=== PATIENT | male | born 1995 | race Caucasian/White ===

== ENCOUNTER 2017-01-29 01:54 | Emergency (ER) | payer SELFPAY ==
[~2017-01-29] VITALS: Ht 185.4 cm; Wt 61.8 kg
[~2017-01-29 01:54] MED LIST: AUGMENTIN875 MG PO; FOCALIN XR10 MG PO; LORTAB 5-325 M1 EACH PO; NOHOMEMEDS; PRILOSEC20 MG PO
[2017-01-29] MEDS ORDERED: PROVENTIL HFA6.7 GM IH (03:08)
[2017-01-29 04:25] VITALS: BP 120/87
== END 2017-01-29 04:24 ==
LOC: EME → EDBD 01:54 → EME 01:54
DX: J45.901 Unspecified asthma with (acute) exacerbation (principal); S20.212A Contusion of left front wall of thorax, initial encounter; S96.912A Strain of unspecified muscle and tendon at ankle and foot level, left foot, initial encounter; V49.9XXA Car occupant (driver) (passenger) injured in unspecified traffic accident, initial encounter; F12.90 Cannabis use, unspecified, uncomplicated; F17.200 Nicotine dependence, unspecified, uncomplicated
CPT/HCPCS: 71010; 73610; 94640; 99281; 99285

== ENCOUNTER 2017-09-20 17:18 | Observation (INO) | payer SELFPAY ==
[~2017-09-20] VITALS: Ht 185.4 cm; Wt 64.5 kg
[~2017-09-20 17:18] MED LIST changes: +PROVENTIL HFA6.7 GM IH
[2017-09-20 18:00] LABS: APPEARANCE CLOUDY ((CLEAR)); BILIRUBIN NEGATIVE; BLOOD LARGE; COLOR AMBER ((YELLOW)); GLUCOSE (STRIP) NEGATIVE; KETONES 20; LEUKOCYTES NEGATIVE; NITRITE NEGATIVE; PROTEIN (STRIP) 100; SPECIFIC GRAVITY 1.024 (1.000-1.030)
[2017-09-20 18:27] LABS: HEMATOCRIT 47.2 % (38.0-50.0); HEMOGLOBIN 17.7 G/DL (12.5-16.6); MCH 32.2 PG (29.0-34.0); MCHC 37.5 G/DL (30.0-36.0); PLATELET COUNT 234 K/uL (156-360); RBC DIS.WIDTH-CV 12.6 % (11.8-14.6); RBC DIS.WIDTH-SD 39.4 % (39-53); RED BLOOD COUNT 5.49 M/uL (4.00-5.50); WHITE BLOOD COUNT 15.3 K/uL (4.1-10.2)
[2017-09-20 18:38] LABS: CHLORIDE 104 mEq/L (99-109); POTASSIUM 3.2 mEq/L (3.7-5.4); SODIUM 137 mEq/L (136-147)
[2017-09-20 18:40] LABS: GLUCOSE 108 mg/dL (70-99)
[2017-09-20 18:41] LABS: EPITHELIAL CELLS NONE SEEN /HPF; MUCUS NONE SEEN /LPF; RED BLOOD CELLS TNTC /HPF (0-5); WHITE BLOOD CELLS NONE SEEN /HPF (0-5)
[2017-09-20 18:42] LABS: BACTERIA NONE SEEN /HPF
[2017-09-20 18:43] LABS: CREATININE 0.9 mg/dL (0.6-1.3); GFR ESTIMATE (CALCULATED) > 59 mL/min/ (58.99-99999)
[2017-09-20 18:44] LABS: UREA NITROGEN (BUN) 10 mg/dL (9-23)
[2017-09-20 19:15] LABS: ALBUMIN 4.9 g/dL (3.2-4.8)
[2017-09-20 19:18] LABS: TOTAL PROTEIN 8.1 g/dL (6.4-8.3); TROP-I INTERPRETATION NEGATIVE; TROPONIN-I < 0.01 ng/mL (0.0-0.30)
[2017-09-20 19:20] LABS: TOTAL BILIRUBIN 0.7 mg/dL (0.0-1.0)
[2017-09-20 19:21] LABS: ALKALINE PHOSPHATASE 108 IU/L (3-129)
[2017-09-20 19:23] LABS: AST (GOT) 14 IU/L (2-34); DIRECT BILIRUBIN 0.3 mg/dL (0.0-0.3)
[2017-09-20 19:24] LABS: ALT (GPT) 8 IU/L (3-49); LIPASE 16 U/L (1.0-51.0)
[2017-09-20 20:31] LABS: CREATINE KINASE 60 IU/L (1-294)
[2017-09-20 22:31] LABS: MONOSPOT (MONONUCLEOSIS SEROL) POSITIVE
[2017-09-20 22:35] LABS: SOURCE URINE
[2017-09-20 23:19] VITALS: BP 115/65
[2017-09-24 14:26] LABS: CHLAMYDIA TRACHOMATIS NEGATIVE; NEISSERIA GONORRHOEAE NEGATIVE
== END 2017-09-21 01:30 | disposition left against medical advice (07) ==
LOC: EME 17:18 → 4SOUTH 22:07 → EDOF 22:07 → ENRESERV 22:08 → 4SOUTH 23:13
PROVIDERS: Physician Assistant
DX: R31.9 Hematuria, unspecified (principal); E87.6 Hypokalemia; B27.90 Infectious mononucleosis, unspecified without complication; K21.9 Gastro-esophageal reflux disease without esophagitis; Z87.891 Personal history of nicotine dependence; Z82.5 Family history of asthma and other chronic lower respiratory diseases; Z88.6 Allergy status to analgesic agent
CPT/HCPCS: 71046; 74176; 80048; 80076; 81003; 82550; 83605; 83690; 84484; 85025; 85027; 86308; 87040; 87086; 87491; 87591; 87651 90; 93005; G0378; J0696; J2270; J2405; J3010; J7030

== ENCOUNTER 2017-09-26 11:20 | Inpatient (IN) | payer OTHER ==
[~2017-09-26] VITALS: Ht 185.4 cm; Wt 63.5 kg
[2017-09-26] VITALS (15 sets, daily range): BP systolic 109–131; BP diastolic 65–95
[2017-09-26 12:19] LABS: BASOPHIL (%) 0.1 % (0-1); EOSINOPHIL (%) 0.2 % (0-5); HEMATOCRIT 41.2 % (38.0-50.0); IMMATURE GRANULOCYTE (%) 0.5 % (0.0-0.7); LYMPHOCYTE (%) 3.8 % (15-42); LYMPHOCYTE COUNT 0.7 K/uL (1.0-2.8); MCH 31.2 PG (29.0-34.0); MCHC 35.9 G/DL (30.0-36.0); MCV 86.7 FL (86-99); MONOCYTE (%) 10.6 % (3-12); NEUTROPHIL (%) 84.8 % (45-76); PLATELET COUNT 269 K/uL (156-360); RBC DIS.WIDTH-CV 12.5 % (11.8-14.6); RBC DIS.WIDTH-SD 39.8 % (39-53); RED BLOOD COUNT 4.75 M/uL (4.00-5.50); WHITE BLOOD COUNT 18.8 K/uL (4.1-10.2)
[2017-09-26 12:25] LABS: CHLORIDE 100 mEq/L (99-109); SODIUM 140 mEq/L (136-147)
[2017-09-26 12:27] LABS: GLUCOSE 139 mg/dL (70-99); TOTAL PROTEIN 7.1 g/dL (6.4-8.3)
[2017-09-26 12:31] LABS: ALKALINE PHOSPHATASE 101 IU/L (3-129)
[2017-09-26 12:32] LABS: CREATININE 3.2 mg/dL (0.6-1.3); GFR ESTIMATE (CALCULATED) 27 mL/min/ (58.99-99999); TOTAL BILIRUBIN 0.5 mg/dL (0.0-1.0); UREA NITROGEN (BUN) 27 mg/dL (9-23)
[2017-09-26 12:33] LABS: AST (GOT) 18 IU/L (2-34)
[2017-09-26 12:34] LABS: ALT (GPT) 8 IU/L (3-49); LIPASE 18 U/L (1.0-51.0)
[2017-09-26 12:35] LABS: PTT 130.6 SEC (25-37)
[2017-09-26 12:47] LABS: INTER. NORMALIZED RATIO 21.3
[2017-09-26 14:27] LABS: HEMOGLOBIN 14.8 G/DL (12.5-16.6)
[2017-09-26 16:00] LABS: APPEARANCE TURBID ((CLEAR)); BILIRUBIN NEGATIVE; BLOOD LARGE; GLUCOSE (STRIP) 50; KETONES NEGATIVE; LEUKOCYTES NEGATIVE; NITRITE NEGATIVE; PROTEIN (STRIP) 100; SPECIFIC GRAVITY 1.025 (1.000-1.030)
[2017-09-26 16:28] LABS: COLOR RED ((YELLOW))
[2017-09-26 16:57] LABS: RED BLOOD CELLS TNTC /HPF (0-5)
[2017-09-26 17:04] LABS: CALCIUM OXALATE CRYSTALS FEW /HPF; EPITHELIAL CELLS RARE /HPF; UCUL ADDED? YES
[2017-09-26 17:25] LABS: FIBRINOGEN 686 mg/dL (150-450)
[2017-09-26 18:22] LABS: D-DIMER LATEX NEGATIVE; SCHISTOCYTES NONE SEEN
[2017-09-26 19:04] LABS: AMPHETAMINE NEGATIVE (500 ng/mL); BARBITURATES NEGATIVE (200 ng/mL); BENZODIAZEPINES NEGATIVE (150 ng/mL); BUPRENORPHINE NEGATIVE (10 ng/mL); COCAINE NEGATIVE (150 ng/mL); METHADONE NEGATIVE (200 ng/mL); METHAMPHETAMINE NEGATIVE (500 ng/mL); OPIATES (MORPHINE) NEGATIVE (100 ng/mL); OXYCODONE PRESUMPTIVE POSITIVE (100 ng/mL); PHENCYCLIDINE NEGATIVE (25 ng/mL); PROPOXYPHENE NEGATIVE (300 ng/mL); THC CANNABINOIDS NEGATIVE (50 ng/mL); TRICYCLIC ANTIDEPRESSANTS NEGATIVE (300 ng/mL)
[2017-09-26 19:24] LABS: ALBUMIN 3.6 G/DL (3.2-4.8); ALKALINE PHOSPHATASE 73 IU/L (3-129); ALT (GPT) 7 IU/L (3-49); AST (GOT) 15 IU/L (2-34); CHLORIDE 103 MEQ/L (99-109); GLUCOSE 114 mg/dL (70-99); PHOSPHORUS 4.8 mg/dL (2.5-4.9); POTASSIUM 3.5 MEQ/L (3.7-5.4); SODIUM 141 MEQ/L (136-147); TOTAL BILIRUBIN 0.6 MG/DL (0.0-1.0); TOTAL PROTEIN 5.8 G/DL (6.4-8.3); UREA NITROGEN (BUN) 28 mg/dL (9-23)
[2017-09-26 19:25] LABS: CREATININE 2.6 MG/DL (0.6-1.3); GFR ESTIMATE (CALCULATED) 34 mL/min/ (58.99-99999)
[2017-09-26 19:58] LABS: MCH 30.2 PG (29.0-34.0); MCHC 34.5 G/DL (30.0-36.0); MCV 87.3 FL (86-99); PLATELET COUNT 220 K/uL (156-360); RBC DIS.WIDTH-CV 12.6 % (11.8-14.6); RBC DIS.WIDTH-SD 40.6 % (39-53); WHITE BLOOD COUNT 12.9 K/uL (4.1-10.2)
[2017-09-26 20:13] LABS: INTER. NORMALIZED RATIO 1.3
[2017-09-26 20:14] LABS: IMMEDIATE MIX PTT 27.2 SEC
[2017-09-26 20:15] LABS: PTT BASELINE 130.6 SEC (25-32)
[2017-09-26 20:26] LABS: CREATINE KINASE 55 IU/L (1-294)
[2017-09-26 21:35] LABS: PLAT.SUFFICIENCY ADEQUATE
[2017-09-26 22:19] LABS: HEMOGLOBIN 11.4 G/DL (12.5-16.6); RED BLOOD COUNT 3.78 M/uL (4.00-5.50)
[2017-09-26 22:39] LABS: 60 MINUTE INCUBATION PTT 51.1
[2017-09-27] VITALS (20 sets, daily range): BP systolic 99–124; BP diastolic 57–85
[2017-09-27 02:49] LABS: INTER. NORMALIZED RATIO 1.5
[2017-09-27 07:05] LABS: HEMATOCRIT 35.2 % (38.0-50.0); HEMOGLOBIN 12.1 G/DL (12.5-16.6); MCH 30.4 PG (29.0-34.0); MCHC 34.4 G/DL (30.0-36.0); MCV 88.4 FL (86-99); PLATELET COUNT 246 K/uL (156-360); RBC DIS.WIDTH-CV 12.8 % (11.8-14.6); RBC DIS.WIDTH-SD 41.8 % (39-53); RED BLOOD COUNT 3.98 M/uL (4.00-5.50); WHITE BLOOD COUNT 11.7 K/uL (4.1-10.2)
[2017-09-27 07:29] LABS: CHLORIDE 106 MEQ/L (99-109); GFR ESTIMATE (CALCULATED) 55 mL/min/ (58.99-99999); GLUCOSE 116 mg/dL (70-99); INTER. NORMALIZED RATIO 1.7; MAGNESIUM 2.2 mg/dl (1.3-2.7); PHOSPHORUS 4.5 mg/dL (2.5-4.9); POTASSIUM 3.7 MEQ/L (3.7-5.4); SODIUM 142 MEQ/L (136-147); UREA NITROGEN (BUN) 22 mg/dL (9-23)
[2017-09-27 07:38] LABS: CREATININE 1.7 MG/DL (0.6-1.3)
[2017-09-27 16:34] LABS: BASOPHIL (%) 0.2 % (0-1); EOSINOPHIL (%) 1.1 % (0-5); EOSINOPHIL COUNT 0.1 K/uL (0-0.3); HEMATOCRIT 31.3 % (38.0-50.0); HEMOGLOBIN 11.2 G/DL (12.5-16.6); IMMATURE GRANULOCYTE (%) 0.5 % (0.0-0.7); LYMPHOCYTE (%) 14.2 % (15-42); LYMPHOCYTE COUNT 1.5 K/uL (1.0-2.8); MCH 31.4 PG (29.0-34.0); MCHC 35.8 G/DL (30.0-36.0); MCV 87.7 FL (86-99); MONOCYTE (%) 9.4 % (3-12); NEUTROPHIL (%) 74.6 % (45-76); NEUTROPHIL COUNT 7.9 K/uL (1.8-6.4); PLATELET COUNT 230 K/uL (156-360); RBC DIS.WIDTH-CV 12.6 % (11.8-14.6); RBC DIS.WIDTH-SD 40.8 % (39-53); RED BLOOD COUNT 3.57 M/uL (4.00-5.50); WHITE BLOOD COUNT 10.6 K/uL (4.1-10.2)
[2017-09-27 16:40] LABS: INTER. NORMALIZED RATIO 2.4
[2017-09-27 17:00] LABS: PTT 38.3 SEC (25-37)
[2017-09-27 17:25] LABS: CHLORIDE 109 MEQ/L (99-109); MAGNESIUM 1.9 mg/dl (1.3-2.7); POTASSIUM 3.4 MEQ/L (3.7-5.4); SODIUM 144 MEQ/L (136-147)
[2017-09-27 17:32] LABS: GFR ESTIMATE (CALCULATED) > 59 mL/min/ (58.99-99999); GLUCOSE 112 mg/dL (70-99); PHOSPHORUS 3.5 mg/dL (2.5-4.9); UREA NITROGEN (BUN) 15 mg/dL (9-23)
[2017-09-27 17:36] LABS: CREATININE 1.1 MG/DL (0.6-1.3)
[2017-09-28] VITALS (12 sets, daily range): BP systolic 106–133; BP diastolic 62–84
[2017-09-28 04:45] LABS: INTER. NORMALIZED RATIO 2.9
[2017-09-28 04:47] LABS: PTT 40.6 SEC (25-37)
[2017-09-28 05:21] LABS: BASOPHIL (%) 0.3 % (0-1); EOSINOPHIL (%) 2.5 % (0-5); EOSINOPHIL COUNT 0.2 K/uL (0-0.3); IMMATURE GRANULOCYTE (%) 0.2 % (0.0-0.7); LYMPHOCYTE (%) 20.4 % (15-42); LYMPHOCYTE COUNT 1.8 K/uL (1.0-2.8); MCH 30.7 PG (29.0-34.0); MCHC 34.4 G/DL (30.0-36.0); MCV 89.4 FL (86-99); MONOCYTE (%) 10.7 % (3-12); MONOCYTE COUNT 0.9 K/uL (0-0.8); NEUTROPHIL (%) 65.9 % (45-76); NEUTROPHIL COUNT 5.8 K/uL (1.8-6.4); PLATELET COUNT 219 K/uL (156-360); RBC DIS.WIDTH-CV 12.5 % (11.8-14.6); RBC DIS.WIDTH-SD 41.4 % (39-53); RED BLOOD COUNT 3.58 M/uL (4.00-5.50); WHITE BLOOD COUNT 8.8 K/uL (4.1-10.2)
[2017-09-28 05:44] LABS: CHLORIDE 107 MEQ/L (99-109); CREATININE 0.8 MG/DL (0.6-1.3); GFR ESTIMATE (CALCULATED) > 59 mL/min/ (58.99-99999); GLUCOSE 97 mg/dL (70-99); MAGNESIUM 1.7 mg/dl (1.3-2.7); PHOSPHORUS 3.5 mg/dL (2.5-4.9); POTASSIUM 3.6 MEQ/L (3.7-5.4); SODIUM 143 MEQ/L (136-147); UREA NITROGEN (BUN) 10 mg/dL (9-23)
[2017-09-28 14:37] LABS: INTER. NORMALIZED RATIO 3.1
[2017-09-28 22:15] LABS: INTER. NORMALIZED RATIO 2.2
[2017-09-28 22:18] LABS: PTT 38.7 SEC (25-37)
[2017-09-29 00:12] VITALS: BP 130/66; BP 136/78
[2017-09-29 04:00] VITALS: BP 128/82
[2017-09-29 05:52] LABS: BASOPHIL (%) 0.6 % (0-1); BASOPHIL COUNT 0.1 K/uL (0-0.1); EOSINOPHIL COUNT 0.3 K/uL (0-0.3); HEMATOCRIT 37.4 % (38.0-50.0); HEMOGLOBIN 12.6 G/DL (12.5-16.6); IMMATURE GRANULOCYTE (%) 0.4 % (0.0-0.7); LYMPHOCYTE (%) 33.7 % (15-42); LYMPHOCYTE COUNT 2.7 K/uL (1.0-2.8); MCH 29.9 PG (29.0-34.0); MCHC 33.7 G/DL (30.0-36.0); MCV 88.6 FL (86-99); MONOCYTE (%) 9.8 % (3-12); MONOCYTE COUNT 0.8 K/uL (0-0.8); NEUTROPHIL (%) 51.5 % (45-76); NEUTROPHIL COUNT 4.1 K/uL (1.8-6.4); RBC DIS.WIDTH-CV 12.5 % (11.8-14.6); RBC DIS.WIDTH-SD 40.7 % (39-53); RED BLOOD COUNT 4.22 M/uL (4.00-5.50)
[2017-09-29 05:53] LABS: PLATELET COUNT 288 K/uL (156-360)
[2017-09-29 05:55] LABS: INTER. NORMALIZED RATIO 1.5
[2017-09-29 05:58] LABS: PTT 36.9 SEC (25-37)
[2017-09-29 06:19] LABS: ALBUMIN 3.8 G/DL (3.2-4.8); ALKALINE PHOSPHATASE 74 IU/L (3-129); ALT (GPT) 7 IU/L (3-49); AST (GOT) 13 IU/L (2-34); CHLORIDE 105 MEQ/L (99-109); CREATININE 0.8 MG/DL (0.6-1.3); GFR ESTIMATE (CALCULATED) > 59 mL/min/ (58.99-99999); GLUCOSE 89 mg/dL (70-99); POTASSIUM 3.2 MEQ/L (3.7-5.4); SODIUM 143 MEQ/L (136-147); TOTAL BILIRUBIN 0.6 MG/DL (0.0-1.0); TOTAL PROTEIN 6.3 G/DL (6.4-8.3); UREA NITROGEN (BUN) 9 mg/dL (9-23)
[2017-09-29 06:20] LABS: CHLORIDE 106 MEQ/L (99-109); CREATININE 0.8 MG/DL (0.6-1.3); GFR ESTIMATE (CALCULATED) > 59 mL/min/ (58.99-99999); GLUCOSE 94 mg/dL (70-99); MAGNESIUM 1.5 mg/dl (1.3-2.7); PHOSPHORUS 3.8 mg/dL (2.5-4.9); POTASSIUM 3.1 MEQ/L (3.7-5.4); SODIUM 143 MEQ/L (136-147); UREA NITROGEN (BUN) 10 mg/dL (9-23)
[2017-09-29 06:59] VITALS: BP 137/78
[2017-09-29 11:05] VITALS: BP 118/74
[2017-09-29 14:45] LABS: INTER. NORMALIZED RATIO 1.2
[2017-09-29 14:47] LABS: PTT 34.7 SEC (25-37)
[2017-09-29 15:08] VITALS: BP 145/79
== END 2017-09-29 18:23 | disposition left against medical advice (07) | DRG 378 ==
LOC: EME 11:20 → EDOF 14:16 → 4WEST 14:16 → ENRESERV 14:21 → 4WEST 15:19 → ENRESERV 09-28 14:19 → 5SOUTH 09-28 19:18
PROVIDERS: Emergency Medicine; Internal Medicine; Student in an Organized Health Care Education/Training Program
DX: K92.0 Hematemesis (principal); K59.00 Constipation, unspecified; Z87.891 Personal history of nicotine dependence; Z79.01 Long term (current) use of anticoagulants; D68.9 Coagulation defect, unspecified; N17.9 Acute kidney failure, unspecified; N13.6 Pyonephrosis; E86.0 Dehydration; F16.90 Hallucinogen use, unspecified, uncomplicated; R79.1 Abnormal coagulation profile; R31.0 Gross hematuria; Z53.21 Procedure and treatment not carried out due to patient leaving prior to being seen by health care provider
CPT/HCPCS: 70450; 71045; 74176; 76770; 80048; 80048 91; 80053; 81003; 82550; 83605; 83615; 83690; 83735; 84100; 85007; 85014; 85018; 85025; 85025 91; 85027; 85060; 85378; 85384; 85610; 85730; 85732; 86850; 86900; 86901; 87040; 87086; 87641; 87651 90; 99281; 99285; C9113; C9132; J0696; J2405; J3010; J3430; J3475; J3480; J7030; J7050; P9017

== ENCOUNTER 2017-10-20 19:25 | Emergency (ER) | payer OTHER ==
[~2017-10-20] VITALS: Ht 185.4 cm; Wt 62.7 kg
[2017-10-20 21:04] LABS: HEMATOCRIT 42.8 % (38.0-50.0); MCHC 35.5 G/DL (30.0-36.0); MCV 87.2 FL (86-99); PLATELET COUNT 212 K/uL (156-360); RBC DIS.WIDTH-CV 13.6 % (11.8-14.6); RBC DIS.WIDTH-SD 43.2 % (39-53); RED BLOOD COUNT 4.91 M/uL (4.00-5.50); WHITE BLOOD COUNT 16.4 K/uL (4.1-10.2)
[2017-10-20 21:06] LABS: HEMOGLOBIN 15.2 G/DL (12.5-16.6)
[2017-10-20 21:11] LABS: ALBUMIN 4.9 g/dL (3.2-4.8); CHLORIDE 99 mEq/L (99-109); POTASSIUM 3.5 mEq/L (3.7-5.4); SODIUM 136 mEq/L (136-147)
[2017-10-20 21:13] LABS: GLUCOSE 81 mg/dL (70-99); TOTAL PROTEIN 8.3 g/dL (6.4-8.3)
[2017-10-20 21:15] LABS: TOTAL BILIRUBIN 0.6 mg/dL (0.0-1.0)
[2017-10-20 21:17] LABS: ALKALINE PHOSPHATASE 94 IU/L (3-129); CREATININE 0.9 mg/dL (0.6-1.3); GFR ESTIMATE (CALCULATED) > 59 mL/min/ (58.99-99999)
[2017-10-20 21:18] LABS: UREA NITROGEN (BUN) 14 mg/dL (9-23)
[2017-10-20 21:19] LABS: AST (GOT) 14 IU/L (2-34)
[2017-10-20 21:20] LABS: ALT (GPT) 9 IU/L (3-49)
[2017-10-20 22:55] LABS: INTER. NORMALIZED RATIO 1.1
[2017-10-20] MEDS ORDERED: CLEOCIN300 MG PO (23:03)
[2017-10-20 23:56] VITALS: BP 112/72
== END 2017-10-20 23:57 | disposition left against medical advice (07) ==
LOC: EME 19:25 → EXP 19:25
PROVIDERS: Physician Assistant
DX: L03.116 Cellulitis of left lower limb (principal); Z88.6 Allergy status to analgesic agent
CPT/HCPCS: 73701; 80053; 83605; 85027; 85610; 87040; 99281; 99284; J2405; J3010; J7030